=== PATIENT | female | born 1970 | race Two or more races ===

== ENCOUNTER → 2024-01-13 07:54 | Outpatient (REF) | payer BC, SELFPAY | LOC: HWWDC 07:54 | PROVIDERS: ATTENDING PHYSICIAN Family Medicine | DX: Z12.31 Encounter for screening mammogram for malignant neoplasm of breast (principal) | CPT/HCPCS: 77063; 77067 ==

== ENCOUNTER → 2025-08-18 15:03 | Outpatient (REF) | payer BC, SELFPAY | LOC: WDC 15:03 | PROVIDERS: ATTENDING PHYSICIAN Nurse Practitioner Women's Health; FAMILY PHYSICIAN Family Medicine | DX: Z12.31 Encounter for screening mammogram for malignant neoplasm of breast (principal) | CPT/HCPCS: 77063; 77067 ==